=== PATIENT | female | born 1980 | race Caucasian/White ===

== ENCOUNTER 2020-03-16 09:39 | Emergency (ER) | payer OTHER, SELFPAY ==
[2020-03-16 09:49] VITALS: BP 126/89; PULSE 86; RESP 16; TEMP 37.2; O2SAT 100
--- NOTE | 2020-03-16 10:07 | ED.GENADULT ---
HPI - General Adult General Chief complaint: Upper Respiratory Infection Stated complaint: Possible sinus infection Time Seen by Provider: 03/16/20 10:07 Source: patient and RN notes reviewed Mode of arrival: ambulatory Limitations: no limitations History of Present Illness HPI narrative: 39-year-old female presents with complaints of upper respiratory infection, facial congestion, facial pain, cough, and intermittent headaches (not the worst of her life) for the past 10 days. Symptoms has increased over the past 48 hours with increase facial pressure, fluids feeling in ears, and eye burning. No facial swelling. Denies cough or chest congestion. Nasal congestion and rhinorrhea. No chest pain or shortness of breath. Exacerbating factors consist of change in weather (increase rain). Denies fever or chills. Nausea without vomiting and abdominal pain. Tolerating po intake well. Denies being , LMP 03/09/20. Remains active. The patient reports she have not been diagnosed with COVID-19. The patient reports she is not waiting for the results of a COVID-19 lab test. She does voice that boyfriend has had positive exposures and told her of the exposures on 03/13/20. The patient reports she do not have fever, chills, weakness, fatigue, myalgia, or facial swelling. The patient reports she do not have a new or worsening cough or shortness of breath. Denies chest pain. The patient reports she do not have any sore throat and diarrhea. Denies recent traveling. Voiced concerns for COVID-19 and possible exposures, has been home with limited outdoor exposure except for essential household needs and return home. At this time, patient is not suspected of having COVID-19. Some parts of this dictation were generated by voice recognition software and may contain typographical and/or grammatical inaccuracies. Related Data Home Medications Medication Instructions Recorded Confirmed Zyrtec 03/16/20 fluticasone propionate INTRANASAL 03/16/20 Allergies Allergy/AdvReac Type Severity Reaction Status Date / Time No Known Allergies Allergy Mild Unverified 12/05/08 01:03 Review of Systems Review of Systems: Narrative: CONSTITUTIONAL: Denies fever, chills, sweats. EYES: Denies visual changes, redness, discharge. ENT: Complains of rhinorrhea, congestion, facial pressure, otalgia. Denies sore throat. CARDIOVASCULAR: Denies chest pain, palpitations, edema. RESPIRATORY: Denies dyspnea, wheezing. Complains of dry cough/intermittent productive. GASTROINTESTINAL: Denies abdominal pain, nausea, vomiting, diarrhea. GENITOURINARY: Denies dysuria, hematuria, abnormal discharge. SKIN: Denies rash or itching. MUSCULOSKELETAL: Denies acute back pain, joint pain, or myalgia. NEUROLOGIC: Denies numbness or focal weakness. Complains of intermittent CHAPPELL. PSYCHIATRIC: Denies anxiety or depression. All systems reviewed & are unremarkable except as noted in HPI and below. [facility] Past Medical History Medical History (Updated 03/16/20 @ 10:34 by GENTRY Langford) No significant past medical history Surgical History Surgical History (Updated 03/16/20 @ 10:34 by GENTRY Langford) History of cholecystectomy S/P arthroscopic knee surgery Family History Family History (Updated 03/16/20 @ 10:35 by GENTRY Langford) Father Heart disease Mother Heart disease Social History Social History (Updated 03/16/20 @ 10:35 by GENTRY Langford) Smoking status: Never smoker Substance use: never Living arrangements: with family Occupation/Education: occupation Gender identity (if verbalized by the patient): Female Sexual Orientation (if Verbalized by the Patient): Straight or Heterosexual Comments At time of signature, agree with nurse past medical, surgical, social, and family history. There is no relevant family history pertinent to the presenting complaint. Exam Narrative: Exam Narra
== END 2020-03-16 10:33 | disposition home or self-care (01) ==
PROVIDERS: Emergency Provider Nurse Practitioner Family
DX: U07.1 COVID-19 (principal); J01.00 Acute maxillary sinusitis, unspecified; R03.0 Elevated blood-pressure reading, without diagnosis of hypertension
CPT/HCPCS: 99213; G0463

== ENCOUNTER 2023-11-26 12:25 | Outpatient (CLI) | payer BC, SELFPAY ==
--- NOTE | ~2023-11-26 | MM_ITS ---
EXAMINATION: MM screening masha BI w rocio HISTORY: Screening TECHNIQUE: Craniocaudal and mediolateral oblique 3-D tomosynthesis images were obtained and synthetic 2-D images were generated. CAD analysis was submitted and interpreted. COMPARISON: No prior mammogram is available for comparison at this institution. BREAST PARENCHYMAL COMPOSITION: Dense: The breasts are heterogeneously dense, which may obscure small masses FINDINGS: There is no evidence of suspicious mass, calcification, or architectural distortion to sugg est malignancy in either breast. There has been no suspicious interval change. IMPRESSION: 1. No mammographic evidence of malignancy. 2. Recommend routine screening mammography in one year. BI-RADS Category 1: Negative Reviewed, dictated and finalized at location A.
== END 2023-11-26 12:26 ==
LOC: MICIMG 12:26
PROVIDERS: PCP Obstetrics & Gynecology Gynecology; Visit Provider Obstetrics & Gynecology Gynecology
DX: Z12.31 Encounter for screening mammogram for malignant neoplasm of breast (principal)
CPT/HCPCS: 77063; 77067